=== PATIENT | male | born 1960 | race Caucasian/White ===

== ENCOUNTER 2025-02-23 05:40 | Day surgery (SDC) | payer OTHER ==
[2025-02-17 10:45] LABS: Absolute Eosinophils 0.2 K/uL (0-0.5); Absolute Monocytes 0.6 K/uL (0.1-1.3); Absolute Neutrophil 4.8 K/uL (1.8-8.0); Basophils % 0.6 % (0-1.3); Eosinophils % 2.5 % (0-4.4); Hematocrit 44.3 % (39.6-49.0); Hemoglobin 14.9 g/dL (13.6-17.9); Lymphocytes % 25.7 % (15.3-44.8); MCHC 33.7 g/dL (32.0-36.0); MCV 88.9 fL (80-100); MPV 8.5 fL (7.6-11.3); Monocytes % 8.4 % (3.3-12.3); Neutrophils % 62.8 % (41.7-73.7); Nucleated Red Blood Cells % 0.1 % (0-0); Platelets 281 thou/uL (152-406); RBC Red Blood Cell Count 4.98 M/uL (4.33-5.43); Red Cell Distribution Width 14.7 % (12.1-15.2)
[2025-02-17 10:53] LABS: PT Prothrombin Time 11.6 SECONDS (10-13.0); PTT, Activated Partial Thromb 32.7 SECONDS (27.2-37.4); Protime INR 1.02
[2025-02-17 11:03] LABS: Anion Gap 9.9 mEq/L (5.0-15.0); Potassium 3.9 mEq/L (3.5-5.1)
--- NOTE | 2025-02-17 11:52 | EKG ---
Test Date: 2025-02-17 Test Time: 10:20:33 Topographic Computator: KENDALL MEASUREMENT RESULTS: Intervals: Rate: 69 IL: 146 QRSD: 82 QT: 396 QTc: 424 [place]: P: 50 [place]: 146 QRS: 34 T: 7 INTERPRETIVE STATEMENTS: Normal sinus rhythm Normal ECG Compared to ECG 09/05/1994 08:00:00 No significant changes Electronically Signed On 02-17-25 11:51:40 CDT by Tigre Corbett
--- NOTE | 2025-02-17 12:10 | RAD REPORT ---
Procedure: Chest Pa And Lat (2 Views) HISTORY: Preop for knee surgery COMPARISON: none FINDINGS: Elevation of the right hemidiaphragm The lungs appear clear of acute infiltrate. No significant pleural effusion noted. The heart is normal size. IMPRESSION: Significant elevation of the right hemidiaphragm may simply represent an eventration. A hernia is a a nother consideration. As there are no previous chest x-rays, a CT scan would be helpful for further evaluation
[2025-02-23] MEDS: Oxycodone HCl/Acetaminophen 5/325 MG TAB ONE (06:20)
[2025-02-23] MEDS: CELECOXIB 100 MG CAPSULE ONE (06:20)
[2025-02-23] MEDS: GABAPENTIN 100 MG CAP ONE (06:20)
[2025-02-23] MEDS: ACETAMINOPHEN 500 MG TAB ONE (06:20)
[2025-02-23] MEDS: BUPIVACAINE 0.5% PF 10 ML VIAL ONE (06:33)
[2025-02-23] MEDS: LIDOCAINE 1% MPF 5 ML VIAL ONE (06:33)
[2025-02-23] MEDS: BUPIVACAINE 0.25% PF 30 ML VIAL ONE (06:33)
[2025-02-23] MEDS: MIDAZOLAM HCL 2 MG/2 ML INJ ONE (06:34)
[2025-02-23] MEDS: FENTANYL CITR 100 MCG/2 ML ONE (06:34)
[2025-02-23] MEDS: dexAMETHasone 10 MG/ML VIAL ONE (06:34)
[2025-02-23] MEDS: EPINEPHRINE 1 MG/ML VIAL ONE (06:34)
[2025-02-23] MEDS: MAGNESIUM SULFATE 1 gm IVPB 1 GM/100 ML BAG IV ONE (08:09)
[2025-02-23] MEDS: DEXMEDETOMIDINE HCL 200 MCG/2 ML VIAL ONE (08:09)
[2025-02-23] MEDS: CEFAZOLIN SODIUM 2 GM/VIAL ONE (08:12)
[2025-02-23] MEDS ORDERED: ONDANSETRON 4 MG/2 ML VIAL ONE (08:16)
[2025-02-23] MEDS ORDERED: propofoL 200 MG/20 ML VIAL IV ONE (08:16)
[2025-02-23] MEDS ORDERED: FENTANYL CITR 100 MCG/2 ML ONE (08:16)
[2025-02-23] MEDS ORDERED: LIDOCAINE 2% MPF 5 ML VIAL ONE ×4 (08:16→08:35)
[2025-02-23] MEDS ORDERED: dexAMETHasone 10 MG/ML VIAL ONE (08:24)
[2025-02-23] MEDS ORDERED: KETAMINE HCL IN 0.9 % NACL 50 MG/5 ML SYRINGE IV ONE (08:24)
[2025-02-23] MEDS: TRANEXAMIC ACID 1,000 MG/10 ML VIAL IV ONE (08:44)
[2025-02-23] MEDS: Ringers Lactate 1,000 ML IV ONE (09:41)
[2025-02-23] MEDS ORDERED: ONDANSETRON 4 MG/2 ML VIAL IV PRN (11:07)
[2025-02-23] MEDS ORDERED: DOCUSATE NA 100 MG CAP PO PRN (11:07)
[2025-02-23] MEDS ORDERED: ACETAMINOPHEN 325 MG TABLET PO PRN (11:07)
[2025-02-23] MEDS ORDERED: hydroCHLOROthiazide 12.5 MG CAP PO PRN (11:07)
[2025-02-23] MEDS ORDERED: TRAMADOL HCL 50 MG TAB PO PRN (11:10)
--- NOTE | 2025-02-23 11:12 | P.BOP ---
Preoperative diagnosis: Left knee osteoarthritis Postoperative diagnosis: Same Primary procedure: Left total knee arthroplasty Fishing Manager: NONE,NONE Estimated blood loss: 50 cc Specimen: Left knee bone remnants Findings: See dictation Anesthesia: General Complications: None Implants: Biomet Fili persona 10 CR femur, 14 MC poly, H tibia w stem, 32 patella Fluids & blood products: Per anesthesia record; tourniquet time 84 minutes at 300 mmHg Transferred to: Recovery Room Condition: Good
--- NOTE | 2025-02-23 11:17 | P.OP ---
Preoperative diagnosis: Left knee osteoarthritis Postoperative diagnosis: Same Primary procedure: Left total knee arthroplasty Anesthesia: General Estimated blood loss: 50 cc Specimen: Left knee bone remnants Findings: See dictation Operative Technique: Indication For Procedure: David is a 64 year-old male presenting to my clinic with signs, symptoms and x-ray findings consistent with severe left knee osteoarthritis. I discussed with the patient at length risks and benefits associated with operative and nonoperative treatment. He had failed conservative treatment measures and had significant difficulties with ADLs secondary to his pain. We discussed operative treatment and elected to proceed with left total knee arthroplasty. He expressed understanding and elected to proceed with operative treatment. Description Of Procedure: After informed consent was obtained, the patient was identified in the preoperative holding area. The left lower extremity was marked. The patient was then taken to the PACU where he underwent a left lower extremity adductor canal block performed by Anesthesia. He was then taken to the operating room, transferred to the operating table in supine fashion, and placed under general anesthesia. The left lower extremity was then prepped and draped in usual sterile fashion. A time-out was initiated. The correct patient and procedure were confirmed and identified. The patient did receive his preoperative prophylactic antibiotics. The left lower extremity was then exsanguinated and tourniquet was inflated to 300 mmHg. Approximately 15 cm longitudinal incision was made centered over the anterior aspect of the left knee. Dissection was then taken to the extensor mechanism and a medial parapatellar arthrotomy was performed. The patella was everted and dislocated laterally and the knee was flexed in the fat pad. Medial and lateral meniscus and ACL were all excised exposing the distal femur. Excess hypertrophic synovium was also excised within the suprapatellar pouch. The patient had an MRI of his left knee preoperatively for surgical planning and creation of cutting blocks. The cutting block was then placed over the distal femur and pins were then placed. The distal femoral cutting block was then placed over the pins. An sonu wing was then used to ensure proper depth cut and the distal femur was then cut. The chamfer cutting guide was then placed over the distal end of the femur. Anterior, posterior cuts as well as anterior and posterior chamfer cuts were then made again confirming proper depth of the cut using an Sonu wing. Excess bone remnants were then sent to pathology for further evaluation. Next, attention was taken to the proximal tibia. A tibial jig and tibial cutting block was then placed on proximal aspect of the left tibia and locked into position. Pins were then placed and alignment guide was then used to confirm proper alignment of the cut and then coronal and sagittal planes. Once this was confirmed, the cutting jig was placed over the pins and the proximal tibia was cut. Given the patient's marrow deformity as well as medial tibial plateau where a larger cut was needed to get to subchondral bone. Sizing trays were then selected and size 12 mm spacer was used and there was good overall balance in flexion and extension. Next, the trial implants were then placed using the size 10 standard CR femur and a size H tibia and an 14 mm MC poly. There was overall good range of motion and good stability. The trial implants were then removed. The wound was then irrigated thoroughly with normal saline and the knee was then injected with 20 cc of 0.5% Marcaine both in the posterior capsule and medial and lateral gutters as well as quadriceps tendon and periosteum. The tibia was then punched. The femur was drilled. The cement was then prepared on the back table. Cement was then placed first on the tibial surface followed by size H tibia with a stem to add to stability given his elevated BMI. Excess cement was removed with [place] elevators. Size 10 standard CR femur was then placed on the distal femur after cement was placed on the distal femur. Excess cement was then removed and a size 14 mm trial poly was then placed. The knee was held in extension as the cement hardened. Undersurface of the patella was prepared debriding osteophytes using rongeurs as well as osteophytes.. Cement was placed on the undersurface of the patella after it was cut and a size 32 patella was placed. Once the cement was hardened, the knee was ranged, there was good overall stability both in flexion, extension and as well as stability with varus and valgus stresses. Trial poly was then removed and a size 14 mm MC poly was then placed and locked into position. The knee was then ranged again. There was good overall range of motion both for flexion and extension with good stability. The wound was then irrigated again thoroughly with normal saline using pulse lavage. Tourniquet was let down. Hemostasis was achieved using Bovie electrocautery. Extensor mechanism was then approximated using a #1 Vicryl both in interrupted and running fashion. The fascia was then approximated using 0 Vicryl. Subcutaneous tissue was approximated with a 2-0 Vicryl. Skin was approximated using nathaly. Sterile dressings were applied. The patient was awakened and transferred back in stable condition. Complications: None Implants: Biomet Fili persona 10 CR femur, H tibia w/ stem, 14 MC poly, 32 patella Fluids & blood products: Per anesthesia record; tourniquet time 84 minutes at 300 mmHg Transferred to: Recovery Room Condition: Good
[2025-02-23 11:39] LABS: Hematocrit 42.1 % (39.6-49.0)
--- NOTE | 2025-02-23 12:31 | RAD REPORT ---
EXAM: XR Knee Left 2 View HISTORY: [facility] MA[facility] Post Op COMPARISON: None TECHNIQUE: 3 views of the left knee were obtained. FINDINGS: No knee effusion is seen. There is no evidence of acute fracture or dislocation. Postsurgi addi changes of total knee arthroplasty with components in satisfactory alignment. Adjacent soft tissue gas, and skin nathaly anteriorly. IMPRESSION: Expected postoperative appearance of total knee arthroplasty.
[2025-02-23 12:38] VITALS: O2SAT 94; BMI 39.0
[2025-02-23] MEDS: CEFAZOLIN SODIUM 2 GM in NA CHLORIDE 0.9% 100 ML IVPB SCH (16:40)
[2025-02-23] MEDS: HYDROCODONE/APAP 7.5/325 MG TAB PO PRN (23:06)
[2025-02-24 04:34] LABS: Hematocrit 39.9 % (39.6-49.0); Hemoglobin 13.3 g/dL (13.6-17.9)
[2025-02-24] MEDS: ENOXAPARIN 30 MG/0.3 ML SQ SCH (06:47)
[2025-02-24 08:27] VITALS: BP 134/66; TEMP 97.5
[2025-02-24] MEDS: LOSARTAN POTASSIUM 50 MG TABLET PO SCH (08:38)
[2025-02-24] MEDS: CELECOXIB 100 MG CAPSULE PO SCH (08:38)
== END 2025-02-24 12:15 | disposition home health service (06) ==
LOC: DS 05:40 → 4TH 11:07 → DS 02-24 12:15
PROVIDERS: ADMIT Orthopaedic Surgery Sports Medicine; ATTEND Orthopaedic Surgery Sports Medicine
PROC: 0SRD0J9 Replacement of Left Knee Joint with Synthetic Substitute, Cemented, Open Approach (ICD-10-PCS; principal; 2025-02-23 08:00)
DX: M17.12 Unilateral primary osteoarthritis, left knee (principal)
CPT/HCPCS: 93005; 85025; 80048; 36415 ×3; 85610; 88305; 88311; 85730; 85018 ×2; 85014 ×2; 71046; 73560; 97116 ×2; 97139; 97161; 97530; 94010; 27447; J3490; C1776 ×3; J3475; J2704; J2003 ×4; J1650; J2250; J3010; J1100 ×2; J0171; J2405; J7120